=== PATIENT | male | born 1965 | race Hispanic/Latino ===

== ENCOUNTER 2016-12-17 08:10 | Day surgery (SDC) | payer BC ==
[2016-12-17] MEDS ORDERED: Lactated Ringer's 500 ML IV ONE (08:22)
[2016-12-17] MEDS ORDERED: Propofol 10 mg/ml Inj (20 ML) ONE (10:22)
[2016-12-17 11:01] VITALS: TEMP 97
[2016-12-17 11:14] VITALS: BP 110/70; PULSE 94; RESP 18; O2SAT 99
== END 2016-12-17 11:37 | disposition home or self-care (01) ==
LOC: H.ENDO 08:10
PROVIDERS: ATTEND Internal Medicine Gastroenterology
DX: Z12.11 Encounter for screening for malignant neoplasm of colon (principal); I10 Essential (primary) hypertension; K57.30 Diverticulosis of large intestine without perforation or abscess without bleeding; K64.8 Other hemorrhoids
CPT/HCPCS: 45378; J2001; J2704; J7120